=== PATIENT | female | born 1990 | race Caucasian/White ===

== ENCOUNTER 2016-08-03 20:23 | Emergency (ER) | payer OTHER ==
[2016-08-03] MEDS ORDERED: ASPIRIN 81 MG CHEW TAB ONE (20:44)
== END 2016-08-03 23:47 | disposition home or self-care (01) ==
LOC: ER 20:23
DX: R07.2 Precordial pain (principal); R06.00 Dyspnea, unspecified; R55 Syncope and collapse; R07.89 Other chest pain
CPT/HCPCS: 36415; 71010; 80053; 82550; 83735; 84439; 84443; 84484; 85025; 85610; 85730; 93005